=== PATIENT | female | born 1985 ===

== ENCOUNTER 2024-02-24 07:06 | Emergency (ER) | payer OTHER, SELFPAY ==
[2024-02-24 07:14] VITALS: BP 135/99; PULSE 80; RESP 16; TEMP 36.7; O2SAT 98; BMI 30.4
--- NOTE | 2024-02-24 07:26 | ED_ITS ---
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 She is right-handed Related Data Home Medications ?Medication ?Instructions ?Recorded ?Confirmed No Known Home Medications 02/24/24 02/24/24 Allergies Allergy/AdvReac Type Severity Reaction Status Date / Time No Known Drug Allergies Allergy Verified 02/24/24 07:19 PFSH PFSH Social History Smoking Status: Never smoker Second hand tobacco smoke exposure: No How often do you have a drink containing alcohol: never AUDIT-C Alcohol total score: 0 Non-prescribed substance use: denies use Exam Narrative: Exam Narrative: General: well nourished , NAD Head: Atraumatic and normocephalic ENT: External ears and external nose are normal Eyes: Conjunctiva clear, pupils are equal reactive, external ocular motions are intact Neck: Full spontaneous range of motion of the neck Lungs: No respiratory distress Musculoskeletal: No tenderness or deformity Neurologic: No gross focal neurologic deficits Skin: 1.2 cm laceration just distal to the MCP joint of the palmar surface of the 4th finger of the left hand. Full flexion and extension at the MCP, DI P, and PIP joints Psych: Mood and affect are appropriate Const: Vital Signs, click to edit/add: Vital Signs - 24 hr 02/24/24 07:14 Temperature 98.1 F Pulse Rate [Pulse Oximeter] 80 Respiratory Rate 16 Blood Pressure [Ri ght Upper Arm] 135/99 H Pulse Oximetry 98 Oxygen Delivery Me thod Room Air Course Course ED Course: Patient seen examined, presents with a laceration at the base of the 4th finger on the palmar surface of the left hand. Full range of motion at the MCP, DI P, and PIP joints, no evidence for tendon injury. Wound repair per procedure note below, discussed wound care in stable for discharge. Tetanus updated Procedure- laceration repair, 1.2 cm full-thickness laceration base of the 4th finger, palmar surface. Risks and benefits were discussed with the patient, verbal consent was obtained. Lidocaine 1% with epinephrine 2 mL total injected around the wound, wound was cleansed with wound cleanser and explored, no foreign body found. Wound was closed with three 5-0 Ethilon simple interrupted sutures. Patient tolerated this well, dressing was placed. Vital Signs Vital signs: Initial Vital Signs Temperature 98.1 F 02/24/24 07:14 Temperature Source Temporal Artery Scan 02/24/24 07:14 Pulse Rate 80 02/24/24 07:14 Respiratory Rate 16 02/24/24 07:14 Blood Pressure 135/99 H 02/24/24 07:14 Blood Pressure Mean 111 H 02/24/24 07:14 Blood Pressure Position Sitting 02/24/24 07:14 Pulse Oximetry 98 02/24/24 07:14 Oxygen Delivery Method Room Air 02/24/24 07:14 Vital Signs Temperature 98.1 F 02/24/24 07:14 Pulse Rate 80 02/24/24 07:14 Respiratory Rate 16 02/24/24 07:14 Blood Pressure 135/99 H 02/24/24 07:14 Pulse Oximetry 98 02/24/24 07:14 Oxygen Delivery Method Room Air 02/24/24 07:14 Temperature 98.1 F 02/24/24 07:14 Pulse Rate 80 02/24/24 07:14 Respiratory Rate 16 02/24/24 07:14 Blood Pressure 135/99 H 02/24/24 07:14 Pulse Oximetry 98 02/24/24 07:14 Oxygen Delivery Method Room Air 02/24/24 07:14 Discharge Plan Discharge Clinical Impression: Laceration of left ring finger Patient Disposition: Home, Self-Care Condition: Stable Instructions: Laceration (ED) Additional Instructions: Wash gently daily with soap and water, dressing as desired, apply antibiotic ointment daily Do not work today, after today you 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
[2024-02-24] MEDS: TETANUS/DIPHTH/PERTUSSIS 0.5 ML SYRINGE IM (07:55)
== END 2024-02-24 08:12 | disposition home or self-care (01) ==
LOC: ED 08:03
PROVIDERS: Emergency Provider Family Medicine
DX: S61.211A Laceration without foreign body of left index finger without damage to nail, initial encounter (principal); W26.9XXA Contact with unspecified sharp object(s), initial encounter
CPT/HCPCS: 12001; 90471; 90715; 99283; 99284

== ENCOUNTER 2024-03-02 17:49 | Emergency (ER) | payer OTHER, SELFPAY ==
[2024-03-02 17:56] VITALS: BP 123/80; PULSE 77; RESP 16; TEMP 36.7; O2SAT 99
--- NOTE | 2024-03-02 18:12 | ED_ITS ---
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 She had a laceration repair done February 23. She feels that the stitches are not ready to come out, she still having pain at the wound. There is some numbness around the wound. 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 No fevers, no drainage. Related Data Home Medications ?Medication ?Instructions ?Recorded ?Confirmed No Known Home Medications 02/24/24 02/24/24 Allergies Allergy/AdvReac Type Severity Reaction Status Date / Time No Known Drug Allergies Allergy Verified 02/24/24 07:19 Review of Systems 2 Narrative: As per HPI. PFSH PFSH Social History Smoking Status: Never smoker Second hand tobacco smoke exposure: No How often do you have a drink containing alcohol: never AUDIT-C Alcohol total score: 0 Non-prescribed substance use: denies use Exam Const: Vital Signs, click to edit/add: Vital Signs - 24 hr 03/02/24 17:56 Temperature 98.1 F Pulse Rate [Pulse Oximeter] 77 Respiratory Rate 16 Blood Pressure [Ri ght Upper Arm] 123/80 Pulse Oximetry 99 Oxygen Delivery Me thod Room Air This 38-year-old female is alert, interactive, no apparent distress. The wound at the base of her right ring finger on the palmar surface is visualized. There is some whitish change along the edges of this wound consistent with a little maceration. You can see the epidermis is not quite approximated fully, does open a bit. Three stitches are in place. There is no evidence of erythema, no significant swelling. She still has full range of motion of the finger, neurovascular intact. No evidence of loss of any flexion or extension. Some light touch sensation loss around the wound which she states feels numb and tingly. Documenting provider has reviewed patient's vital signs: yes Course Course ED Course: We discussed that this wound indeed does not look ready to have sutures removed. I believe that the wound is stain too moist with probable use for gloves all day. She has been using gauze when she does bandage it, this is helpful as it is more breathable. She has been using some triple antibiotic ointment, can continue to do a light layer a couple times a day but we have discussed trying to keep her hand open to air, especially at night. I think that will help this wound heal. There is certainly no evidence of infection, no motor or vascular compromise. We did review the numbness and tingling may or may not continue. There is often some loss of skin sensation with these small wounds, around the wounds. It may improve with time, she may be left with some superficial numbness tingling right around the wound. Vital Signs Vital signs: Initial Vital Signs Temperature 98.1 F 03/02/24 17:56 Temperature Source Temporal Artery Scan 03/02/24 17:56 Pulse Rate 77 03/02/24 17:56 Respiratory Rate 16 03/02/24 17:56 Blood Pressure 123/80 03/02/24 17:56 Blood Pressure Mean 94 03/02/24 17:56 Blood Pressure Position Sitting 03/02/24 17:56 Pulse Oximetry 99 03/02/24 17:56 Oxygen Delivery Method Room Air 03/02/24 17:56 Vital Signs Temperature 98.1 F 03/02/24 17:56 Pulse Rate 77 03/02/24 17:56 Respiratory Rate 16 03/02/24 17:56 Blood Pressure 123/80 03/02/24 17:56 Pulse Oximetry 99 03/02/24 17:56 Oxygen Delivery Method Room Air 03/02/24 17:56 Temperature 98.1 F 03/02/24 17:56 Pulse Rate 77 03/02/24 17:56 Respiratory Rate 16 03/02/24 17:56 Blood Pressure 123/80 03/02/24 17:56 Pulse Oximetry 99 03/02/24 17:56 Oxygen Delivery Method Room Air 03/02/24 17:56 Discharge Plan Discharge Clinical Impression: Laceration of left ring finger Patient Disposition: Home, Self-Care Condition: Stable Instructions: Laceration (ED) Additional Instructions: Will provide a note to be out of work the next 3 days so you can keep your handout of gloves, hopefully that will help with the healing process. Stitches need to be re-evaluated in about 5 days to reassess the wound to see if they are ready for removal. Wound does not look infected at this time. Can use a light layer of the triple antibiotic couple times a day but would leave your hand open to air at night. It seems like the wound is perhaps stain too moist with use of gloves during the day and not healing as quickly. If you are out in public, would put the gauze on, this does breathe better than occlusive bandages. Activity Level: Activity as Tolerated Discharge Diet: Regular Prescriptions: No Action No Known Home Medications Follow Up/Referrals: Provider,Not a Local [Primary Care Provider] - Stand Alone Forms: [employer] Info Instructions
== END 2024-03-02 18:29 | disposition home or self-care (01) ==
LOC: ED 18:23
PROVIDERS: Emergency Provider Family Medicine
DX: S61.215A Laceration without foreign body of left ring finger without damage to nail, initial encounter (principal)
CPT/HCPCS: 99282

== ENCOUNTER 2024-03-08 18:11 | Emergency (ER) | payer OTHER, SELFPAY ==
[2024-03-08 18:16] VITALS: BP 118/82; PULSE 78; RESP 18; TEMP 36.4; O2SAT 98; BMI 30.4
--- NOTE | 2024-03-08 18:44 | ED.GENADULT ---
HPI - General Adult General Chief complaint: Laceration/Wound Stated complaint: Left hand needs suture removal Time Seen by Provider: 03/08/24 18:22 Source: patient Mode of arrival: ambulatory Limitations: no limitations History of Present Illness HPI narrative: 38-year-old female coming to the emergency room department today for suture removal. No other concerns. Sutures were placed on 02/24/2024. Related Data Home Medications ?Medication ?Instructions ?Recorded ?Confirmed No Known Home Medications 02/24/24 02/24/24 Allergies Allergy/AdvReac Type Severity Reaction Status Date / Time No Known Drug Allergies Allergy Verified 02/24/24 07:19 PFSH PFSH Social History Smoking Status: Never smoker Second hand tobacco smoke exposure: No How often do you have a drink containing alcohol: never AUDIT-C Alcohol total score: 0 Non-prescribed substance use: denies use Exam Narrative: Exam Narrative: Patient has 3 sutures at the base of the left ring finger. The laceration appears to be healed appropriately, there is no evidence of infection. Const: Vital Signs, click to edit/add: Vital Signs - 24 hr 03/08/24 18:16 Temperature 97.5 F L Pulse Rate [Pulse Oximeter] 78 Respiratory Rate 18 Blood Pressure [Ri ght Upper Arm] 118/82 Pulse Oximetry 98 Oxygen Delivery Me thod Room Air Course Course ED Course: Three sutures removed without complication. Vital Signs Vital signs: Initial Vital Signs Temperature 97.5 F L 03/08/24 18:16 Temperature Source Temporal Artery Scan 03/08/24 18:16 Pulse Rate 78 03/08/24 18:16 Pulse Rhythm Regular 03/08/24 18:16 Respiratory Rate 18 03/08/24 18:16 Blood Pressure 118/82 03/08/24 18:16 Blood Pressure Mean 94 03/08/24 18:16 Blood Pressure Position Sitting 03/08/24 18:16 Pulse Oximetry 98 03/08/24 18:16 Oxygen Delivery Method Room Air 03/08/24 18:16 Vital Signs Temperature 97.5 F L 03/08/24 18:16 Pulse Rate 78 03/08/24 18:16 Respiratory Rate 18 03/08/24 18:16 Blood Pressure 118/82 03/08/24 18:16 Pulse Oximetry 98 03/08/24 18:16 Oxygen Delivery Method Room Air 03/08/24 18:16 Temperature 97.5 F L 03/08/24 18:16 Pulse Rate 78 03/08/24 18:16 Respiratory Rate 18 03/08/24 18:16 Blood Pressure 118/82 03/08/24 18:16 Pulse Oximetry 98 03/08/24 18:16 Oxygen Delivery Method Room Air 03/08/24 18:16 Medical Decision Making MDM Narrative Medical decision making narrative: 38-year-old female presenting for suture removal, done as requested. Discharge Plan Discharge Clinical Impression: Visit for suture removal Prescriptions: No Action No Known Home Medications Follow Up/Referrals: Provider,Not a Local [Primary Care Provider] - Stand Alone Forms: [employer] Info Instructions
== END 2024-03-08 19:01 | disposition home or self-care (01) ==
PROVIDERS: Emergency Provider Family Medicine
DX: Z48.02 Encounter for removal of sutures (principal)
CPT/HCPCS: 99281; 99283